=== PATIENT | male | born 1960 | race African-American/Black ===

== ENCOUNTER 2017-09-04 14:28 | Outpatient (CLI) | payer BC | END 2017-09-04 14:29 | disposition home or self-care (01) | LOC: BICULT 14:28 | PROVIDERS: ATTEND Family Medicine | DX: M79.661 Pain in right lower leg (principal) ==

== ENCOUNTER 2017-11-06 11:52 | Outpatient (CLI) | payer BC ==
[2017-11-06 13:37] LABS: #Basophils 0.1 thou/uL (0.0-0.2); #Eosinphils 0.1 thou/uL (0.0-0.7); #Lymphocytes 1.1 thou/uL (1.20-3.40); #Monocytes 0.3 thou/uL (0.11-0.59); #Neutrophils 2.7 thou/uL (1.40-6.50); %Basophils 1.3 % (0.0-1.0); %Eosinophils 1.8 % (0.0-10.0); %Lymphocytes 26.9 % (21.0-51.0); %Monocytes 6.4 % (0.0-10.0); %Neutrophils 63.6 % (42.0-75.0); Hemoglobin 14.8 g/dL (14.0-18.0); Mean Corpuscular HGB CONC 32.7 g/dL (32.0-36.0); Mean Corpuscular Hemoglobin 28.6 pg (27.0-31.0); Mean Corpuscular Volume 87.2 fl (80.0-94.0); Mean Platelet Volume 8.2 fL (7.4-10.4); Platelet Count 233 thou/uL (130-400); RBC Distribution Width 13.8 % (11.5-14.5); White Blood Cell (WBC) Count 4.2 thou/uL (4.8-10.8)
[2017-11-06 13:42] LABS: INR-International Normal Ratio 1.1; PTT 31.8 SEC (22.9-36.1); Prothrombin Time 13.8 SEC (12.0-14.7)
[2017-11-06 13:45] LABS: Bilirubin Negative (Negative); Blood, Urine Moderate (Negative); Clarity CLEAR (Clear); Glucose, Urine (Dipstick) Negative (Negative); Leukocyte Moderate (Negative); Nitrite Negative (Negative); Protein, Urine (Dipstick) Negative (Neg-Trace); Specific Gravity, Urine 1.019 (1.002-1.036); Urobilinogen 0.2 mg/dL (0.2-1.0); pH, Urine 5.5 (5.0-9.0)
[2017-11-06 13:50] LABS: Bacteria/HPF None Seen HPF (None Seen); Hyaline Casts/LPF 0-3 HYALINE CAST LPF (0-3 Hyaline); Pathc Cast-AUWi Flag 0.29 (0-2.49); Squamous Epithelial 0-3 HPF (0-3)
[2017-11-06 14:03] LABS: Anion Gap 12 mmol/L (10-20); BUN (Urea Nitrogen) 17 mg/dL (8.4-25.7); Calc. Creatinine Clearance 0 mL/min (70-130); Calcium 9.2 mg/dL (7.8-10.44); Carbon Dioxide 19 mmol/L (22-29); Chloride 111 mmol/L (98-107); Estimated GFR-MDRD 80; Glucose 78 mg/dL (70-105); Sodium 138 mmol/L (136-145)
== END 2017-11-06 11:53 | disposition home or self-care (01) ==
LOC: LABBT 11:52
PROVIDERS: ATTEND Orthopaedic Surgery
DX: M16.0 Bilateral primary osteoarthritis of hip (principal)
CPT/HCPCS: 80048; 81001; 85025; 85610; 85730; 87081; 93005; 93010

== ENCOUNTER 2017-11-06 13:00 | Inpatient (IN) | payer BC ==
[2017-11-06 12:42] VITALS: BMI 34.0
--- NOTE | 2017-11-13 13:08 | HP ---
DATE OF ADMISSION: 11/17/2017 HISTORY OF PRESENT ILLNESS: The patient is a 56-year-old male with a long history of gradual progres sive degenerative arthritis of both hips, right greater than left without of history of injury. 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 He has had progressive symptoms despite rest, restriction of activities, attempt at lifestyle adjustments, and use of anti-inflammatory medications including Meloxicam. The pain is now interfering with day-to-day activities including walking, getting dressed, and working. PAST SURGICAL HISTORY: The patient has had previous lumbar fusion. He has a history of hypertension , glaucoma, and prostatitis. CURRENT MEDICATIONS: Include Meloxicam, atenolol, chlorthalidone, Combigan, Lumigan, and Cialis. ALLERGIES: He has no known allergies. FAMILY HISTORY: Otherwise unremarkable. SOCIAL HISTORY: Otherwise unremarkable. REVIEW OF SYSTEMS: Otherwise unremarkable. PHYSICAL EXAMINATION: GENERAL: Reveals a healthy male. HEENT: Unremarkable. NECK: Supple. CHEST: Clear. HEART: Regular rate and rhythm. ABDOMEN: Soft, nontender. RECTAL/GENITAL: Deferred. EXTREMITIES: Pertinent findings related to his hips. Leg lengths are equal. There is tenderness ov er the anterior hip bilaterally. There is decreased range of motion of both hips and groin pain with internal rotation, right greater than left. Neurovascular exam is intact. Palpable distal pulses. Straight leg raising is negative. X-rays of the pelvis and both hips reveal degenerative arthritis of both hips with progression from p revious x-rays with minimal joint space remaining. MRI scan in 06/2016 also confirms degenerative ar thritis of both hips, right greater than left. IMPRESSION: 1. Degenerative arthritis, both hips, right symptomatic more than left. 2. History of hypertension. 3. History of glaucoma. PLAN: Right total hip replacement. He may ultimately require staged left total hip replacement. Th e nature of the surgery, length of recovery, and potential complications such as infection, loss of m otion, incomplete relief, neurovascular injury, thromboembolic phenomena, leg length discrepancy, pos sible transfusion, and need for revision have been discussed in detail.
[2017-11-17] MEDS ORDERED: Sodium Chloride 0.9% 100 ML ONE (06:37)
[2017-11-17] MEDS ORDERED: CEFAZOLIN/Water 2 GM/20 ML SYRINGE ONE (06:37)
[2017-11-17] MEDS ORDERED: Vancomycin HCl 1.5 GM in Sodium Chloride 0.9% 250 ML 300 ML IVPB SCH ×2 (06:45→20:00)
[2017-11-17] MEDS ORDERED: diphenhydrAMINE 50 MG/ML VIAL IVP PRN (08:45)
[2017-11-17] MEDS ORDERED: Zolpidem Tartrate 5 MG TAB PO PRN ×2 (08:45→13:28)
[2017-11-17] MEDS ORDERED: fentaNYL Citrate/PF 1,250 MCG, Bupivacaine 25 ML in Sodium Chloride 0.9% 250 ML 200 ML EPIDURAL SCH (08:45)
[2017-11-17] MEDS ORDERED: HYDROcodone/Acetaminophen 5/325 mg Tablet PO PRN ×2 (08:45)
[2017-11-17] MEDS ORDERED: diphenhydrAMINE 25 MG CAP PO PRN ×2 (08:45→13:28)
[2017-11-17] MEDS ORDERED: Promethazine HCl 25 MG/ML VIAL IM PRN ×2 (08:45→10:29)
[2017-11-17] MEDS ORDERED: traMADol HCl 50 MG TAB PO PRN ×3 (08:45→13:28)
[2017-11-17] MEDS ORDERED: Naloxone HCl 0.4 mg/ml Vial IVP PRN (08:45)
[2017-11-17] MEDS ORDERED: Ketorolac Tromethamine 30 MG/ML VIAL IVP PRN (08:45)
[2017-11-17] MEDS ORDERED: diphenhydrAMINE 50 MG/ML VIAL IM PRN (08:45)
[2017-11-17] MEDS ORDERED: Naloxone HCl 0.4 mg/ml Vial IV PRN (08:45)
[2017-11-17] MEDS ORDERED: Ondansetron HCl/PF 4 MG/2 ML Vial IVP PRN ×3 (08:45→13:28)
[2017-11-17] MEDS ORDERED: Bupivacaine 0.25% 10 ML VIAL EPIDURAL PRN (08:45)
[2017-11-17] MEDS ORDERED: Hydrocerin (Eucerin) Cream 120 gm Jar TOP PRN (08:45)
[2017-11-17] MEDS ORDERED: Promethazine HCl 25 MG SUPP PR PRN (08:45)
[2017-11-17] MEDS ORDERED: Bupivacaine/Epinephrine 0.25% 30 ML VIAL ONE (09:20)
[2017-11-17] MEDS ORDERED: Fentanyl 100 MCG/2 ML VIAL ONE (09:20)
[2017-11-17] MEDS ORDERED: Promethazine HCl 25 MG/ML VIAL SLOW IVP PRN ×2 (10:29→13:28)
[2017-11-17] MEDS ORDERED: Tranexamic Acid 1,000 MG in Sodium Chloride 0.9% 100 ML IVPB SCH ×2 (11:45→13:28)
--- NOTE | 2017-11-17 12:07 | OP ---
DATE OF PROCEDURE: 11/17/2017 SURGEON: Hermelindo Baker M.D. REGULATORY COMPLIANCE SPECIALIST: NATHANIEL Melton. ANESTHESIA: General plus epidural. PREOPERATIVE DIAGNOSIS: Degenerative arthritis, right hip. POSTOPERATIVE DIAGNOSIS: Degenerative arthritis, right hip. PROCEDURES: Right total hip replacement with uncemented Lisette Trident acetabular component 54 mm w ith X3 polyethylene insert and uncemented [place] Accolade femoral stem #3 with 36 mm standard neck l ength Delta ceramic femoral head. NARRATIVE REPORT: After satisfactory anesthesia was induced in supine position, the patient was plac ed in the lateral decubitus position, in this position held with hip positioning device. Sequential compression device was used on the nonoperated leg throughout the procedure. Right hip was then prep ped and draped in routine sterile fashion. The hip was approached through a lateral curvilinear inci aldo centered over the greater trochanter and carried down through subcutaneous tissues, and bleeding points controlled with Bovie cautery. IT band and gluteal fascia were split in line with skin incis ion. Direct lateral approach to the hip joint was accomplished by dividing the anterior third of the gluteus medius minimus tendons with Bovie cautery and reflecting this as a single flap anteriorly an d medially along with the vastus lateralis. Anterior capsulectomy was performed. The hip dislocated anteriorly. There was marked degenerative arthritis of the hip with large areas of exposed bone. T he femoral neck was osteotomized with an oscillating saw using a trial prosthesis as a guide. Acetab ulum was cleaned of all soft tissue and debris and then reamed in sequence with the power reamers margot n to bleeding subchondral bone to a total of 54 mm. It was felt that a 54 mm Trident PSL outer shell could be placed in a press fit fashion. The permanent outer shell was then hammered in position. T here was good fit and stability of the component and the permanent X3 polyethylene liner was then sna pped into position. The proximal femur was exposed and opened with a box osteotome and rasped in seq uence to accept a #3 Accolade femoral rasp. Trial reduction with 132 degree neck angle trunnion and the standard neck length 36 mm head gave appropriate size, fit, and stability. Hip was dislocated, t rial components removed. The permanent #3 Accolade femoral stem was then hammered in position. This gave good fit and stability of the component. The permanent standard neck length 36 mm Delta cerami c head was then placed on the trunnion. The hip again reduced and found to be stable. The wound was copiously irrigated with pulsatile lavage. The abductors were repaired with interrupted #2 Vicryl, IT band and gluteal fascia were closed with #2 Vicryl and a running #2 Quill. Subcutaneous tissues w ere closed with running 0 Quill suture and the skin closed with running subcuticular 3-0 Monoderm and SurgiSeal skin adhesive. Sterile dressing was applied. The patient turned to supine position and a pillow placed between his legs. Sequential compression device applied to his operated leg. He was awakened and taken to recovery room in stable condition. There were no apparent intraoperative compl ications. Estimated blood loss was 300 mL.
--- NOTE | 2017-11-17 12:46 | RAD ---
TWO VIEWS OF RIGHT HIP: INDICATION: Postoperative right hip. COMPARISON: None. FINDINGS: There is a right total hip prosthesis that projects in the expected position. No acute osseous abnor mality is evident. IMPRESSION: Postoperative right hip. POS: YAHAIRA
[2017-11-17] MEDS ORDERED: Fentanyl 100 MCG/2 ML VIAL SLOW IVP PRN ×2 (13:28)
[2017-11-17] MEDS ORDERED: Acetaminophen 325 MG TAB PO PRN (13:28)
[2017-11-17] MEDS ORDERED: HYDROcodone/Acetaminophen 10/325 mg Tablet PO PRN ×2 (13:28)
[2017-11-17] MEDS ORDERED: PROPOFOL 200 MG/20 ML VIAL ONE (14:17)
[2017-11-17] MEDS ORDERED: Lidocaine 1% PF 5 ML VIAL ONE (14:17)
[2017-11-17] MEDS ORDERED: PHENYLEPHRINE-NS 100 MCG/ML 10 ML SYRINGE ONE (14:17)
[2017-11-17] MEDS ORDERED: Glycopyrrolate 0.2 MG/ML 5 ML SYRINGE ONE (14:17)
[2017-11-17] MEDS ORDERED: Ondansetron HCl/PF 4 MG/2 ML Vial ONE (14:17)
[2017-11-17] MEDS: Ketorolac Tromethamine 30 MG/ML VIAL IVP SCH ×2 (14:21→21:03)
[2017-11-17] MEDS: Brinzolamide 1% Ophth Soln 10 ml Bottle L EYE SCH ×2 (14:22→21:04)
[2017-11-17] MEDS: AcetaZOLAMIDE 250 MG TAB PO SCH ×2 (14:22→21:02)
[2017-11-17] MEDS: Brimonidine Tartrate 0.2% Ophth Soln 5 ml Bottle EA EYE SCH ×2 (14:22→21:05)
[2017-11-17] MEDS: Dorzolamide HCl 2% Ophth Soln 10 ml Bottle L EYE SCH ×2 (14:23→21:04)
[2017-11-17] MEDS: CEFAZOLIN/Water 2 GM/20 ML SYRINGE SLOW IVP SCH (18:04)
[2017-11-17] MEDS: Sodium Chloride 0.9% 1,000 ML IV SCH (18:18)
--- NOTE | 2017-11-17 22:43 | PDOC.PN ---
- Subjective Encounter Start Date: 11/17/17 Encounter Start Time: 14:00 Patient seen and examined for med mngt. h/o HTN and glaucoma. No new complaints. Pain controlled. No CP/SOB/palpitations. - Objective MAR Reviewed: Yes Vital Signs & Weight: Vital Signs (12 hours) Temp Pulse Resp BP Pulse Ox 11/17/17 20:00 98.5 F 64 16 97 11/17/17 19:50 98.5 F 64 16 144/80 H 97 11/17/17 13:05 97.9 F 57 L 18 125/65 99 Weight Weight 230 lb I&O: 11/16/17 11/17/17 11/18/17 06:59 06:59 06:59 Intake Total 1400 Output Total 500 Balance 900 Result Diagrams: 11/18/17 04:30 EKG Reviewed by me: Yes (SR) Phys Exam - Physical Examination Constitutional: NAD Respiratory: no wheezing, no rhonchi Cardiovascular: RRR, no rub Gastrointestinal: soft, non-tender, positive bowel sounds Musculoskeletal: no edema Dx/Plan (1) HTN (hypertension) Code(s): I10 - ESSENTIAL (PRIMARY) HYPERTENSION Status: Chronic (2) Obesity (BMI 30.0-34.9) Code(s): E66.9 - OBESITY, UNSPECIFIED Status: Chronic (3) Glaucoma Code(s): H40.9 - UNSPECIFIED GLAUCOMA Status: Chronic (4) CKD (chronic kidney disease) stage 2, GFR 60-89 ml/min Code(s): N18.2 - CHRONIC KIDNEY DISEASE, STAGE 2 (MILD) Status: Chronic - Plan PT/OT, DVT proph w/SCDs Cont Amlodipine - hold for SBP <120 -: Cont Eye drops for glaucoma -: Cont supportive care -: Will follow. Thank you for this consultation. Review of Systems - Review of Systems Respiratory: negative: Cough, Dry, Shortness of Breath, Hemoptysis, SOB with Excertion, Pleuritic Pain, Sputum, Wheezing Cardiovascular: negative: chest pain, palpitations, orthopnea, paroxysmal nocturnal dyspnea, edema, light headedness, other - Medications/Allergies Allergies/Adverse Reactions: Allergies Allergy/AdvReac Type Severity Reaction Status Date / Time Hcnkhhr-Ohx-Cpf Reductase Allergy Verified 11/06/17 12:42 Inhibitor Medications: Current Medications Acetaminophen (Tylenol) 650 mg PO Q4H PRN PRN Reason: JIANG/ T > 101F; Mild Pain (1-3) Hydrocodone Bitart/Acetaminophen ([place] 5/325) 1 tab PO Q4H PRN PRN Reason: Mild Pain 0-3 Hydrocodone Bitart/Acetaminophen ([place] 5/325) 2 tab PO Q4H PRN PRN Reason: For Moderate Pain 4-6 Acetazolamide (Diamox) 250 mg PO TID [facility] Last Admin: 11/17/17 21:02 Dose: 250 mg Amlodipine Besylate (Norvasc) 10 mg PO QAM [facility] Aspirin (Aspirin Chewable) 81 mg PO BID [facility] Last Admin: 11/17/17 21:02 Dose: 81 mg Brimonidine Tartrate (Alphagan 0.2% Ophth Soln) 1 drop EA EYE Q8HR [facility] Last Admin: 11/17/17 21:05 Dose: 1 drop Brinzolamide (Azopt 1% Ophth Soln) 1 drop L EYE TID [facility] Last Admin: 11/17/17 21:04 Dose: 1 drop Cefazolin Sodium (Ancef) 2 gm SLOW IVP 0200,1000,1800 [facility] Stop: 11/18/17 02:01 Last Admin: 11/17/17 18:04 Dose: 2 gm Diphenhydramine HCl (Benadryl) 25 mg PO Q3H PRN PRN Reason: Itching Diphenhydramine HCl (Benadryl) 25 mg IM Q3H PRN PRN Reason: Itching Diphenhydramine HCl (Benadryl) 25 mg IVP Q3H PRN PRN Reason: Itching Diphenhydramine HCl (Benadryl) 25 mg PO Q6H PRN PRN Reason: Itching Dorzolamide HCl (Trusopt 2% Ophth Soln) 1 drop L EYE TID [facility] Last Admin: 11/17/17 21:04 Dose: 1 drop Emollient Cream (Hydrocerin Cream) 0 gm TOP PRN PRN PRN Reason: Itching Ferrous Gluconate (Fergon) 324 mg PO BID [facility] Fentanyl Citrate 1,250 mcg/Bupivacaine HCl 25 ml/ Sodium Chloride 250 mls @ 0 mls/hr EPIDURAL INF [facility] PRN Reason: As Directed Sodium Chloride (Normal Saline 0.9%) 1,000 mls @ 100 mls/hr IV .Q10H [facility] Last Admin: 11/17/17 18:18 Dose: Not Given Iron/Minerals/Multivitamins (Theragran M) 1 tab PO DAILY [facility] Ketorolac Tromethamine (Toradol) 30 mg IVP Q8HR [facility] Stop: 11/19/17 14:01 Last Admin: 11/17/17 21:03 Dose: 30 mg Miscellaneous Information (Communication Order-Pharmacy) 1 each FS ASDIR [facility] Naloxone HCl (Narcan) 0.2 mg IV Q5MIN PRN PRN Reason: RR <=8 OR OBTUNDED/UNAROUSABLE Naloxone HCl (Narcan) 0.1 mg IVP Q15MIN PRN PRN Reason: URINARY RETENTION Ondansetron HCl (Zofran) 4 mg IVP Q6H PRN PRN Reason: Nausea/Vomiting Ondansetron HCl (Zofran) 4 mg IVP Q6H PRN PRN Reason: Nausea/Vomiting Red Yeast Rice [Red (Yeast Rice] 1,200 Mg) 0 each PO QAM [facility] Saw [place] Fruit [ (Saw [place]] 900 Mg) 0 each PO QAM [facility] Promethazine HCl (Phenergan) 12.5 mg IM Q4H PRN PRN Reason: Nausea Promethazine HCl (Phenergan Suppository) 25 mg SD Q4H PRN PRN Reason: Nausea/Vomiting Promethazine HCl (Phenergan) 12.5 mg SLOW IVP Q4H PRN PRN Reason: Nausea/Vomiting Senna/Docusate Sodium (Senokot S) 2 tab PO BID [facility] Sodium Chloride (Flush - Normal Saline) 10 ml IVF PRN PRN PRN Reason: Saline Flush Testosterone Cypionate (Depo-Testosterone) 200 mg IM Q14D [facility] Tramadol HCl (Ultram) 50 mg PO Q6H PRN PRN Reason: Mild Pain 1-3 Tramadol HCl (Ultram) 100 mg PO Q6H PRN PRN Reason: Moderate Pain 4-6 Zolpidem Tartrate (Ambien) 5 mg PO HSPRN PRN PRN Reason: Insomnia
[2017-11-18] MEDS: Sodium Chloride 0.9% 1,000 ML IV SCH ×4 (00:44→23:27)
[2017-11-18] MEDS: CEFAZOLIN/Water 2 GM/20 ML SYRINGE SLOW IVP SCH (01:02)
[2017-11-18 04:46] LABS: Hemoglobin 13.2 g/dL (14.0-18.0); Mean Corpuscular HGB CONC 31.7 g/dL (32.0-36.0); Mean Corpuscular Hemoglobin 27.7 pg (27.0-31.0); Mean Corpuscular Volume 87.3 fL (78.0-98.0); Mean Platelet Volume 7.5 fL (7.4-10.4); Platelet Count 220 thou/uL (130-400); RBC Distribution Width 13.5 % (11.5-14.5); Red Blood Cell (RBC) Count 4.79 mill/uL (4.70-6.10); White Blood Cell (WBC) Count 7.4 thou/uL (4.8-10.8)
[2017-11-18] MEDS: Ketorolac Tromethamine 30 MG/ML VIAL IVP SCH ×3 (06:14→21:53)
[2017-11-18] MEDS: Brimonidine Tartrate 0.2% Ophth Soln 5 ml Bottle EA EYE SCH ×3 (06:15→20:35)
[2017-11-18] MEDS: Ferrous Gluconate 324 MG TAB PO SCH ×2 (07:57→20:32)
[2017-11-18] MEDS: Amlodipine 10 MG TAB PO SCH (07:58)
[2017-11-18] MEDS: Senokot S 8.6-50 MG TAB PO SCH ×2 (07:58→20:33)
[2017-11-18] MEDS: Multivitamin W/ Minerals 1 TAB PO SCH (07:59)
[2017-11-18] MEDS: AcetaZOLAMIDE 250 MG TAB PO SCH ×3 (07:59→20:32)
[2017-11-18] MEDS: Brinzolamide 1% Ophth Soln 10 ml Bottle L EYE SCH ×3 (08:00→20:35)
[2017-11-18] MEDS: Dorzolamide HCl 2% Ophth Soln 10 ml Bottle L EYE SCH ×3 (08:01→21:54)
[2017-11-18] MEDS ORDERED: Red Yeast Rice [Red Yeast Rice] 1,200 MG PO SCH (09:00)
[2017-11-18] MEDS ORDERED: Amlodipine 10 MG TAB PO SCH (09:00)
[2017-11-18] MEDS ORDERED: SAW PALMETTO FRUIT 900 MG PO SCH (09:00)
--- NOTE | 2017-11-18 17:08 | PDOC.PN ---
- Subjective Encounter Start Date: 11/18/17 Encounter Start Time: 17:07 Mr. Pendleton was seen today in follow-up of HTN and post right THR. He says he feels " great". He denies any chest pain or shortness of breath. - Objective MAR Reviewed: Yes Vital Signs & Weight: Vital Signs (12 hours) Temp Pulse Resp BP BP Pulse Ox 11/18/17 16:36 98.3 F 73 16 123/77 99 11/18/17 08:00 99.2 F 70 18 109/63 97 11/18/17 07:58 77 109/63 Weight Admit Weight 230 lb Weight 230 lb I&O: 11/17/17 11/18/17 11/19/17 06:59 06:59 06:59 Intake Total 1400 Output Total 950 Balance 450 Result Diagrams: 11/18/17 04:30 Phys Exam - Physical Examination HEENT: PERRLA, sclera anicteric Respiratory: no wheezing, no rales, no rhonchi, clear to auscultation bilateral Cardiovascular: RRR, no significant murmur, no rub Gastrointestinal: soft, non-tender, positive bowel sounds Musculoskeletal: no edema, pulses present Neurological: non-focal, moves all 4 limbs Dx/Plan (1) Status post total hip replacement, right Code(s): Z96.641 - PRESENCE OF RIGHT ARTIFICIAL HIP JOINT Status: Acute (2) Glaucoma Code(s): H40.9 - UNSPECIFIED GLAUCOMA Status: Chronic (3) HTN (hypertension) Code(s): I10 - ESSENTIAL (PRIMARY) HYPERTENSION Status: Chronic (4) Obesity (BMI 30.0-34.9) Code(s): E66.9 - OBESITY, UNSPECIFIED Status: Chronic - Plan * HTN- blood pressure is well controlled * OA- s/p right total hip replacement- pain is controlled * Glaucoma- stable - continue home medications.
[2017-11-19] MEDS: Ketorolac Tromethamine 30 MG/ML VIAL IVP SCH (05:40)
[2017-11-19] MEDS: Brimonidine Tartrate 0.2% Ophth Soln 5 ml Bottle EA EYE SCH (05:41)
[2017-11-19] MEDS: Ferrous Gluconate 324 MG TAB PO SCH (08:20)
[2017-11-19] MEDS: Senokot S 8.6-50 MG TAB PO SCH (08:21)
[2017-11-19] MEDS: Multivitamin W/ Minerals 1 TAB PO SCH (08:21)
[2017-11-19] MEDS: Amlodipine 10 MG TAB PO SCH (08:22)
[2017-11-19] MEDS: AcetaZOLAMIDE 250 MG TAB PO SCH (08:22)
[2017-11-19] MEDS: Brinzolamide 1% Ophth Soln 10 ml Bottle L EYE SCH (08:25)
[2017-11-19] MEDS: Dorzolamide HCl 2% Ophth Soln 10 ml Bottle L EYE SCH (08:26)
[2017-11-19 11:41] VITALS: BP 145/65; TEMP 99
--- NOTE | 2017-11-20 11:41 | DIS ---
DATE OF ADMISSION: 11/17/2017 DATE OF DISCHARGE: 11/19/2017 PREOPERATIVE DIAGNOSIS: Right hip osteoarthritis. DISCHARGE DIAGNOSIS: Right hip osteoarthritis. PROCEDURE: The patient underwent a right total hip replacement. HOSPITAL COURSE: Hospital stay was unremarkable. The patient was admitted to [address] where he worked with staff, physical therapy, occupational therapy, and did quite well. By postop erative day #2, he was ready to discharge home. DISCHARGE CONDITION: Good/stable. DISPOSITION: Home with family. FOLLOWUP: Followup would be in 2-4 weeks or sooner if there are problems or concerns. DISCHARGE MEDICATIONS: Given with usage instructions. This is Cristobal Bradley PA-C dictating for Dr. Hermelindo Baker.
== END 2017-11-19 14:12 | disposition home or self-care (01) | DRG 470 ==
LOC: SURG A 11-17 06:21 → SJJU 11-17 13:12
PROVIDERS: ADMIT Orthopaedic Surgery; ATTEND Orthopaedic Surgery
PROC: 0SR90JA Replacement of Right Hip Joint with Synthetic Substitute, Uncemented, Open Approach (ICD-10-PCS; principal; 2017-11-17)
DX: M16.0 Bilateral primary osteoarthritis of hip (principal); I12.9 Hypertensive chronic kidney disease with stage 1 through stage 4 chronic kidney disease, or unspecified chronic kidney disease; N18.2 Chronic kidney disease, stage 2 (mild); E66.9 Obesity, unspecified; Z68.34 Body mass index [BMI] 34.0-34.9, adult; H40.9 Unspecified glaucoma
CPT/HCPCS: 36415; 85027; G8978-GP-CL; G8979-GP-CJ; G8987-GO-CJ; G8988-GO-CI; J0171; J1885; J2001; J2405; J2704; J3010; J3370; J3490; J7050

== ENCOUNTER 2017-11-12 14:37 | Outpatient (CLI) | payer BC | END 2017-11-12 14:38 | disposition home or self-care (01) | LOC: LABBT 14:37 | PROVIDERS: ATTEND Orthopaedic Surgery | DX: Z01.818 Encounter for other preprocedural examination (principal); M16.0 Bilateral primary osteoarthritis of hip | CPT/HCPCS: 86850; 86900; 86901 ==

== ENCOUNTER 2018-01-14 21:43 | Emergency (ER) | payer BC ==
[2018-01-14 22:20] LABS: Bilirubin Negative (Negative); Blood, Urine Moderate (Negative); Clarity CLOUDY (Clear); Glucose, Urine (Dipstick) Negative (Negative); Leukocyte Negative (Negative); Nitrite Negative (Negative); Protein, Urine (Dipstick) Negative (Neg-Trace); Specific Gravity, Urine 1.017 (1.002-1.036); Urobilinogen 0.2 mg/dL (0.2-1.0); pH, Urine 5.5 (5.0-9.0)
[2018-01-14 22:22] LABS: Bacteria/HPF None Seen HPF (None Seen)
[2018-01-14 22:23] LABS: Pathc Cast-AUWi Flag 4.65 (0-2.49)
[2018-01-14 22:31] LABS: Hemoglobin 14.1 g/dL (14.0-18.0); Mean Corpuscular HGB CONC 33.1 g/dL (32.0-36.0); Mean Corpuscular Hemoglobin 28.6 pg (27.0-31.0); Mean Corpuscular Volume 86.2 fL (78.0-98.0); Mean Platelet Volume 7.4 fL (7.4-10.4); Platelet Count 255 thou/uL (130-400); RBC Distribution Width 12.7 % (11.5-14.5); Red Blood Cell (RBC) Count 4.92 mill/uL (4.70-6.10); White Blood Cell (WBC) Count 7.3 thou/uL (4.8-10.8)
[2018-01-14 22:32] LABS: Crystals/HPF 2+ CA OXALATE HPF (Negative)
[2018-01-14 22:51] LABS: ALT (SGPT) 24 U/L (8-55); AST (SGOT) 20 U/L (5-34); Albumin 4.4 g/dL (3.5-5.0); Alkaline Phosphatase 121 U/L (40-150); Anion Gap 13 mmol/L (10-20); BUN (Urea Nitrogen) 13 mg/dL (8.4-25.7); Bilirubin, Total 0.4 mg/dL (0.2-1.2); Calc. Creatinine Clearance 0 mL/min (70-130); Calcium 9.5 mg/dL (7.8-10.44); Carbon Dioxide 25 mmol/L (22-29); Chloride 106 mmol/L (98-107); Estimated GFR-MDRD 71; Globulin 3.4 g/dL (2.4-3.5); Glucose 113 mg/dL (70-105); Potassium 3.9 mmol/L (3.5-5.1); Protein, Total 7.8 g/dL (6.0-8.3); Sodium 140 mmol/L (136-145)
[2018-01-14 22:52] LABS: Lymphocytes 10 % (21-51); MDiff Complete? YES; Monocytes 3 % (0-10); Neutrophil 87 % (42-75); PLT Morphology Comment Appears Adequate; RBC Morphology Normal
[2018-01-14] MEDS ORDERED: Ketorolac Tromethamine 60 MG/2 ML VIAL ONE (23:22)
== END 2018-01-14 23:59 | disposition home or self-care (01) ==
LOC: ERS 21:43
DX: R10.9 Unspecified abdominal pain (principal); R39.198 Other difficulties with micturition; E78.5 Hyperlipidemia, unspecified; I10 Essential (primary) hypertension
CPT/HCPCS: 36415; 80053; 81003; 81015; 85025; 96372; J1885

== ENCOUNTER 2018-02-23 09:46 | Outpatient (CLI) | payer BC ==
[2018-02-23 11:09] LABS: #Basophils 0.1 thou/uL (0.0-0.2); #Eosinphils 0.1 thou/uL (0.0-0.7); #Lymphocytes 1.3 thou/uL (1.20-3.40); #Monocytes 0.3 thou/uL (0.11-0.59); #Neutrophils 2.8 thou/uL (1.40-6.50); %Basophils 2.1 % (0.0-1.0); %Lymphocytes 27.6 % (21.0-51.0); %Monocytes 5.4 % (0.0-10.0); %Neutrophils 61.9 % (42.0-75.0); Hemoglobin 14.8 g/dL (14.0-18.0); Mean Corpuscular HGB CONC 31.3 g/dL (32.0-36.0); Mean Corpuscular Volume 86.4 fL (78.0-98.0); Mean Platelet Volume 7.9 fL (7.4-10.4); Platelet Count 246 thou/uL (130-400); RBC Distribution Width 13.9 % (11.5-14.5); Red Blood Cell (RBC) Count 5.47 mill/uL (4.70-6.10); White Blood Cell (WBC) Count 4.5 thou/uL (4.8-10.8)
[2018-02-23 11:11] LABS: Bilirubin Negative (Negative); Blood, Urine Negative (Negative); Clarity CLOUDY (Clear); Glucose, Urine (Dipstick) Negative (Negative); Leukocyte Negative (Negative); Nitrite Negative (Negative); Protein, Urine (Dipstick) Negative (Neg-Trace); Specific Gravity, Urine 1.013 (1.002-1.036); Urobilinogen 0.2 mg/dL (0.2-1.0)
[2018-02-23 11:16] LABS: Bacteria/HPF None Seen HPF (None Seen); Hyaline Casts/LPF 0-3 HYALINE CAST LPF (0-3 Hyaline); Pathc Cast-AUWi Flag 0.14 (0-2.49); Squamous Epithelial None Seen HPF (0-3); WBC/HPF 0-3 HPF (0-3)
[2018-02-23 11:31] LABS: Prothrombin Time 13.2 SEC (12.0-14.7)
[2018-02-23 11:37] LABS: Anion Gap 11 mmol/L (10-20); BUN (Urea Nitrogen) 14 mg/dL (8.4-25.7); Calc. Creatinine Clearance 0 mL/min (70-130); Calcium 9.5 mg/dL (7.8-10.44); Carbon Dioxide 22 mmol/L (22-29); Chloride 112 mmol/L (98-107); Estimated GFR-MDRD 79; Glucose 96 mg/dL (70-105); Potassium 4.2 mmol/L (3.5-5.1); Sodium 141 mmol/L (136-145)
== END 2018-02-23 09:47 | disposition home or self-care (01) ==
LOC: LABBT 09:46
PROVIDERS: ATTEND Orthopaedic Surgery
DX: Z01.818 Encounter for other preprocedural examination (principal); M16.12 Unilateral primary osteoarthritis, left hip
CPT/HCPCS: 80048; 81001; 85025; 85610; 86850; 86900; 86901; 87081; 93005; 93010

== ENCOUNTER 2018-02-23 10:00 | Inpatient (IN) | payer BC ==
--- NOTE | 2018-02-26 10:26 | HP ---
HISTORY OF PRESENT ILLNESS: The patient is a 57-year-old male with a long history of progressive deg enerative arthritis of both hips, right greater than left. He underwent right total hip replacement in October of this year with good results. He continues to have progressive problems with his left hip. He has had progressive pain despite rest, restriction of activities, anti-inflammatory medications, lifestyle adjustments. His pain is interfering with day-to-day activities including walking, gettin g dressed and sleeping. PAST MEDICAL HISTORY: Please see the old chart. The patient has had previous back surgery and eye s urgery. He has had a history of hypertension and glaucoma. CURRENT MEDICATIONS: Include Meloxicam, atenolol, chlorthalidone, Alphagan drops and Lumigan drops. ALLERGIES: He has no known allergies. FAMILY HISTORY/SOCIAL HISTORY/REVIEW OF SYSTEMS: Otherwise unremarkable. PHYSICAL EXAMINATION: GENERAL: Reveals a healthy heavyset male. HEENT: Unremarkable. NECK: Supple. CHEST: Clear. HEART: Regular rate and rhythm. ABDOMEN: Soft, nontender. RECTAL/GENITAL: Deferred. EXTREMITIES: Pertinent findings related to the left hip. There is tenderness in the left groin. Th ere is decreased range of motion. There is groin pain with internal rotation. Leg lengths are equal . Neurovascular exam is intact. LABORATORY AND X-RAY FINDINGS: X-rays of the left hip reveal moderately severe DJD with minimal join t space remaining. IMPRESSION: 1. Degenerative arthritis, left hip. 2. Status post right total hip replacement. PLAN: Left total hip replacement. The nature of the surgery, length of recovery, and potential comp lications such as infection, loss of motion, incomplete relief, neurovascular injury, thromboembolic phenomenon, leg length discrepancy, possible transfusion, and need for revision have been discussed i n detail.
[2018-03-02] MEDS ORDERED: Midazolam HCl 2 mg/2 ml Vial ONE (06:19)
[2018-03-02] MEDS ORDERED: Fentanyl 100 MCG/2 ML VIAL ONE ×2 (06:19→10:30)
[2018-03-02] MEDS ORDERED: Sodium Chloride 0.9% 100 ML ONE (06:23)
[2018-03-02] MEDS ORDERED: CEFAZOLIN/Water 2 GM/20 ML SYRINGE ONE (06:23)
[2018-03-02] MEDS ORDERED: Vancomycin HCl 1.5 GM in Sodium Chloride 0.9% 250 ML 300 ML IVPB SCH ×2 (06:30→18:00)
[2018-03-02] MEDS ORDERED: diphenhydrAMINE 25 MG CAP PO PRN ×2 (07:00→12:12)
[2018-03-02] MEDS ORDERED: traMADol HCl 50 MG TAB PO PRN ×3 (07:00→12:12)
[2018-03-02] MEDS ORDERED: Ondansetron HCl/PF 4 MG/2 ML Vial IVP PRN ×3 (07:00→12:12)
[2018-03-02] MEDS ORDERED: Naloxone HCl 0.4 mg/ml Vial IVP PRN (07:00)
[2018-03-02] MEDS ORDERED: fentaNYL Citrate/PF 1,250 MCG, Bupivacaine 25 ML in Sodium Chloride 0.9% 250 ML 200 ML EPIDURAL SCH (07:00)
[2018-03-02] MEDS ORDERED: diphenhydrAMINE 50 MG/ML VIAL IVP PRN (07:00)
[2018-03-02] MEDS ORDERED: Hydrocerin (Eucerin) Cream 120 gm Jar TOP PRN (07:00)
[2018-03-02] MEDS ORDERED: diphenhydrAMINE 50 MG/ML VIAL IM PRN (07:00)
[2018-03-02] MEDS ORDERED: Promethazine HCl 25 MG/ML VIAL IM PRN ×2 (07:00→07:43)
[2018-03-02] MEDS ORDERED: Promethazine HCl 25 MG SUPP PR PRN (07:00)
[2018-03-02] MEDS ORDERED: Ketorolac Tromethamine 30 MG/ML VIAL IVP PRN (07:00)
[2018-03-02] MEDS ORDERED: HYDROcodone/Acetaminophen 5/325 mg Tablet PO PRN ×2 (07:00)
[2018-03-02] MEDS ORDERED: Zolpidem Tartrate 5 MG TAB PO PRN ×2 (07:00→12:12)
[2018-03-02] MEDS ORDERED: Naloxone HCl 0.4 mg/ml Vial IV PRN (07:00)
[2018-03-02] MEDS ORDERED: Bupivacaine HCl 0.5%/Epinephrine 1:200,000/PF 30 ml Vial ONE (07:07)
[2018-03-02] MEDS ORDERED: Promethazine HCl 25 MG/ML VIAL SLOW IVP PRN ×2 (07:43→12:12)
[2018-03-02] MEDS ORDERED: Tranexamic Acid 1,000 MG in Sodium Chloride 0.9% 100 ML IVPB SCH ×2 (09:15→12:12)
[2018-03-02] MEDS ORDERED: Meperidine HCl/PF 25 MG/ML VIAL ONE (09:37)
--- NOTE | 2018-03-02 10:03 | RAD ---
TWO VIEWS LEFT HIP: Date: 03-02-18 Comparison: None. History: Evaluate hip following surgery. FINDINGS: There is a total hip arthroplasty on the left. Adjacent soft tissue gas suggests recent surgery. No e vidence for hardware failure, acute fracture or dislocation. IMPRESSION: Left total hip arthroplasty as above. POS: YAHAIRA
--- NOTE | 2018-03-02 10:39 | OP ---
DATE OF PROCEDURE: 03/02/2018 SURGEON: Hermelindo Baker M.D. PREPARATOR: Alfredito Cano M.D. ANESTHESIA: General plus epidural. PREOPERATIVE DIAGNOSIS: Degenerative arthritis, left hip. POSTOPERATIVE DIAGNOSIS: Degenerative arthritis, left hip. PROCEDURES: Left total hip replacement with uncemented Lisette Trident PSL acetabular component, 54 mm, with X3 polyethylene insert and uncemented [place] Accolade femoral stem 3.5 with 132-degree angl e trunnion with a -5 mm Delta ceramic femoral head. NARRATIVE REPORT: After satisfactory anesthesia was induced in supine position, the patient was plac ed in the lateral decubitus position and this position held with a hip position device. Sequential c ompression device was used on the non-operative leg throughout the procedure. The patient's left hip was prepped and draped in routine sterile fashion. The hip was approached through a lateral curvili near incision centered over the greater trochanter and carried down to subcutaneous tissues, and blee ding points were controlled with Bovie cautery. IT band and gluteal fascia were split in line with t he skin incision. Direct lateral approach to the hip joint was accomplished by dividing the anterior third of the gluteus medius minimus tendons with Bovie cautery and reflecting this as a single flap anteromedially along with vastus lateralis. Anterior capsulectomy was performed. The hip dislocated anteriorly. There was marked degenerative arthritis of the hip with areas of exposed bone. The fem oral neck was osteotomized with an oscillating saw using a trial prosthesis as a guide. Acetabulum w as exposed and cleaned of all soft tissue and debris. It was then reamed in sequence with power ream ers down to bleeding subchondral bone to a total of 54 mm. It was felt that a 54 mm Trident PSL oute r shell could be placed in a press fit fashion. The permanent outer shell was hammered in position. There was good fit and stability of the component. Rim osteophytes were removed. The permanent X3 polyethylene liner was snapped into position and the proximal femur exposed. It was opened with box osteotome and rasped in sequence to accept a 3.5 Accolade femoral rasp. Trial reduction was accompli shed with 132 degree angle trunnion and the -536 mm head and this gave appropriate size, fit, and sta bility. Hip was dislocated, the trial components removed. The permanent 3.5 Accolade femoral stem w as then hammered in position. There was again good fit and stability of the component. The permanen t 36 mm -5 mm neck length Delta ceramic head was then placed on the trunnion. The hip again reduced and found to be stable. The hip was copiously irrigated with pulsatile lavage. The abductors were r epaired with interrupted #2 Vicryl. IT band and gluteal fascia were closed with interrupted #2 Vicry l and a running #2 Quill. Subcutaneous tissues were closed with interrupted #2-0 Vicryl and a runnin g 0 Quill. Skin was closed with running subcuticular 3-0 Monoderm and SurgiSeal skin adhesive. Ster ile dressing was applied. The patient turned to supine position, a pillow placed between his legs. Sequential compression device was applied to the operated leg and he was awakened and taken to recove ry room in stable condition. There were no apparent intraoperative complications. ESTIMATED BLOOD LOSS: 250 mL.
[2018-03-02] MEDS ORDERED: PHENYLEPHRINE-NS 100 MCG/ML 10 ML SYRINGE ONE (10:48)
[2018-03-02] MEDS ORDERED: Ondansetron HCl/PF 4 MG/2 ML Vial ONE (10:48)
[2018-03-02] MEDS ORDERED: PROPOFOL 200 MG/20 ML VIAL ONE (10:48)
[2018-03-02] MEDS ORDERED: Lidocaine 1% PF 5 ML VIAL ONE (10:48)
[2018-03-02 11:59] VITALS: BMI 34.9
[2018-03-02] MEDS ORDERED: HYDROcodone/Acetaminophen 10/325 mg Tablet PO PRN ×2 (12:12)
[2018-03-02] MEDS ORDERED: Fentanyl 100 MCG/2 ML VIAL SLOW IVP PRN ×2 (12:12)
[2018-03-02] MEDS ORDERED: Acetaminophen 325 MG TAB PO PRN (12:12)
[2018-03-02] MEDS ORDERED: Amlodipine 10 MG TAB PO SCH (13:00)
[2018-03-02] MEDS ORDERED: Aspirin 81 mg Enteric Coated Tablet PO SCH (13:00)
[2018-03-02] MEDS ORDERED: AcetaZOLAMIDE 250 MG TAB PO SCH (13:00)
[2018-03-02] MEDS: Ferrous Gluconate 324 MG TAB PO SCH ×2 (13:37→21:05)
[2018-03-02] MEDS: Sodium Chloride 0.9% 1,000 ML IV SCH (13:37)
[2018-03-02] MEDS: CEFAZOLIN/Water 2 GM/20 ML SYRINGE SLOW IVP SCH ×2 (14:10→21:10)
[2018-03-02] MEDS: Ketorolac Tromethamine 30 MG/ML VIAL IVP SCH ×3 (15:06→22:50)
[2018-03-02] MEDS: Dorzolamide HCl 2% Ophth Soln 10 ml Bottle L EYE SCH ×2 (15:16→21:09)
[2018-03-02] MEDS: Brinzolamide 1% Ophth Soln 10 ml Bottle L EYE SCH ×2 (15:19→21:08)
[2018-03-02] MEDS ORDERED: LATANOPROST OP SCH (21:00)
[2018-03-02] MEDS: AcetaZOLAMIDE 250 MG TAB PO SCH (21:04)
[2018-03-02] MEDS: Aspirin 81 mg Enteric Coated Tablet PO SCH (21:05)
[2018-03-02] MEDS: Latanoprost 0.005% Ophth Soln 2.5 ml Bottle EA EYE SCH (21:06)
[2018-03-03] MEDS: Sodium Chloride 0.9% 1,000 ML IV SCH ×3 (00:50→17:05)
[2018-03-03] MEDS: Ketorolac Tromethamine 30 MG/ML VIAL IVP SCH ×3 (05:33→21:09)
[2018-03-03 05:56] LABS: Hemoglobin 12.8 g/dL (14.0-18.0); Mean Corpuscular HGB CONC 31.9 g/dL (32.0-36.0); Mean Corpuscular Hemoglobin 27.5 pg (27.0-31.0); Mean Corpuscular Volume 86.1 fL (78.0-98.0); Mean Platelet Volume 8.7 fL (7.4-10.4); Platelet Count 207 thou/uL (130-400); RBC Distribution Width 14.1 % (11.5-14.5); Red Blood Cell (RBC) Count 4.67 mill/uL (4.70-6.10); White Blood Cell (WBC) Count 9.8 thou/uL (4.8-10.8)
[2018-03-03] MEDS: Brinzolamide 1% Ophth Soln 10 ml Bottle L EYE SCH ×3 (08:06→21:27)
[2018-03-03] MEDS: Loratadine 10 MG TAB PO SCH (08:07)
[2018-03-03] MEDS: Aspirin 81 mg Enteric Coated Tablet PO SCH ×2 (08:07→21:08)
[2018-03-03] MEDS: Multivitamin W/ Minerals 1 TAB PO SCH (08:07)
[2018-03-03] MEDS: AcetaZOLAMIDE 250 MG TAB PO SCH ×3 (08:07→21:08)
[2018-03-03] MEDS: Senokot S 8.6-50 MG TAB PO SCH ×2 (08:08→21:09)
[2018-03-03] MEDS: Ferrous Gluconate 324 MG TAB PO SCH ×2 (08:08→21:08)
[2018-03-03] MEDS: Dorzolamide HCl 2% Ophth Soln 10 ml Bottle L EYE SCH ×3 (08:08→21:30)
[2018-03-03] MEDS: Amlodipine 10 MG TAB PO SCH (08:10)
[2018-03-03] MEDS: Latanoprost 0.005% Ophth Soln 2.5 ml Bottle EA EYE SCH (21:27)
[2018-03-04] MEDS: Sodium Chloride 0.9% 1,000 ML IV SCH ×2 (04:47→08:42)
[2018-03-04] MEDS: Ketorolac Tromethamine 30 MG/ML VIAL IVP SCH ×2 (05:41→13:56)
[2018-03-04] MEDS: Dorzolamide HCl 2% Ophth Soln 10 ml Bottle L EYE SCH (08:19)
[2018-03-04] MEDS: Brinzolamide 1% Ophth Soln 10 ml Bottle L EYE SCH (08:20)
[2018-03-04] MEDS: Multivitamin W/ Minerals 1 TAB PO SCH (08:21)
[2018-03-04] MEDS: Ferrous Gluconate 324 MG TAB PO SCH (08:21)
[2018-03-04] MEDS: Aspirin 81 mg Enteric Coated Tablet PO SCH (08:21)
[2018-03-04] MEDS: Loratadine 10 MG TAB PO SCH (08:22)
[2018-03-04] MEDS: AcetaZOLAMIDE 250 MG TAB PO SCH (08:22)
[2018-03-04] MEDS: Senokot S 8.6-50 MG TAB PO SCH (08:22)
[2018-03-04] MEDS: Amlodipine 10 MG TAB PO SCH (08:23)
[2018-03-04 15:29] VITALS: BP 132/65; TEMP 98.4
== END 2018-03-04 15:25 | disposition home or self-care (01) | DRG 470 ==
LOC: SJJU 03-02 05:35
PROVIDERS: ADMIT Orthopaedic Surgery; ATTEND Orthopaedic Surgery
PROC: 0SRB04A Replacement of Left Hip Joint with Ceramic on Polyethylene Synthetic Substitute, Uncemented, Open Approach (ICD-10-PCS; principal; 2018-03-04)
DX: M16.12 Unilateral primary osteoarthritis, left hip (principal); Z96.641 Presence of right artificial hip joint; Z79.899 Other long term (current) drug therapy; I10 Essential (primary) hypertension; H40.9 Unspecified glaucoma
CPT/HCPCS: 36415; 85027; G8978-GP-CK; G8979-GP-CI; G8987-GO-CJ; G8988-GO-CK; J0670; J1200; J1885; J2001; J2175; J2250; J2405; J2704; J3010; J3370; J3490; J7050